=== PATIENT | male | born 1980 | race African-American/Black ===

== ENCOUNTER 2023-12-08 23:13 | Inpatient (IN) | payer OTHER, SELFPAY ==
[2023-12-08 23:45] VITALS: BP 143/76; PULSE 89; RESP 16; TEMP 36.2; O2SAT 99
[2023-12-09] MEDS: Buprenorphine/Naloxone 8/2 mg TAB.SUBL 1 TAB SUBLINGUAL ×2 (01:30→08:49)
[2023-12-09] MEDS: traZODone HCL 100 MG TABLET PO ×2 (01:30→20:30)
[2023-12-09] MEDS: cloNIDine HCL 0.2 MG TABLET PO ×2 (01:30→20:31)
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
[2023-12-09 07:40] VITALS: BP 126/55; PULSE 96; RESP 12; TEMP 36.9; O2SAT 98
[2023-12-09 08:05] LABS: Estimated Average Glucose 105 mg/dL; Hemoglobin A1c % 5.3 % (<6.0)
[2023-12-09 08:19] LABS: Alanine Aminotransferase 21 U/L (0-40); Albumin Level 3.7 g/dL (3.5-5.0); Alkaline Phosphatase 89 U/L (39-117); Anion Gap 13 (12-20); Aspartate Amino Transferase 22 U/L (5-37); Bilirubin Total 0.6 mg/dL (0.0-1.0); Blood Urea Nitrogen 18 mg/dL (9-16); Calcium 9.4 mg/dL (8.4-10.2); Carbon Dioxide 26 mmol/L (22-29); Chloride 108 mmol/L (96-108); Cholesterol 157 mg/dL (<200); Estimated Glomerular Filt Rate > 60; Glucose Fasting 115 mg/dL (60-99); HDL Cholesterol 35 mg/dL (>40); LDL Cholesterol Calculated 112 mg/dL (<100); Potassium 3.9 mmol/L (3.3-5.1); Sodium 143 mmol/L (135-145); Total Protein 6.8 g/dL (6.5-8.0); Triglycerides 54 mg/dL (<150)
[2023-12-09 08:38] LABS: Vitamin B12 1123 pg/mL (200-900)
[2023-12-09] MEDS: Sertraline HCL 100 MG TABLET PO (08:49)
[2023-12-09] MEDS: Nicotine 21 MG PATCH.TD24 TRANSDERMA ×2 (08:49→14:23)
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
[2023-12-09] MEDS: Buprenorphine/Naloxone 2/0.5mg FILM 3 FILM SUBLINGUAL (14:23)
[2023-12-09 20:10] VITALS: BP 126/63; PULSE 77; RESP 16; TEMP 36.2; O2SAT 100
[2023-12-09] MEDS: Sennosides 8.6 MG TABLET 17.2 MG PO (20:30)
[2023-12-09] MEDS: Buprenorphine/Naloxone 8/2 mg FILM 1 FILM SUBLINGUAL (20:30)
[2023-12-10] MEDS: Milk of Magnesia 30 ML ORAL.SUSP PO (04:26)
[2023-12-10 06:00] VITALS: BP 122/71; PULSE 74; RESP 16; TEMP 36.2; O2SAT 98
[2023-12-10] MEDS: Sertraline HCL 100 MG TABLET PO (09:04)
[2023-12-10] MEDS: Sennosides 8.6 MG TABLET 17.2 MG PO ×2 (09:04→11:36)
[2023-12-10] MEDS: Nicotine 21 MG PATCH.TD24 TRANSDERMA (09:05)
[2023-12-10] MEDS: Buprenorphine/Naloxone 2/0.5mg FILM 3 FILM SUBLINGUAL (09:30)
[2023-12-10] MEDS: hydrOXYzine HCL 50 MG TABLET 100 MG PO ×2 (11:36→21:07)
[2023-12-10] MEDS: Buprenorphine/Naloxone 2/0.5mg FILM 1 FILM SUBLINGUAL (11:37)
[2023-12-10] MEDS: cloNIDine HCL 0.1 MG TABLET PO ×2 (11:37→15:53)
--- NOTE | 2023-12-10 13:58 | HO.PSYCHPN ---
Subjective Subjective Date of Service: 12/10/23 Reason For Visit: Unspecific Anxiety Disorder Interim History: pt awake and alert. suboxone returned to 8 mg TID. pt asks for something for anxiety and to restart hydroxyzine 100 BID, which is done. agrees to add clonidine during the day for new clonidine regimen of 0.1/0.1/0.2. also c/o nightmares, agrees to add prazosin 1 mg back into his regimen. requesting more aggressive senna regimen as well. states he did sleep longer last night, at 4.5 hours, than he usually does. awaiting bed at [facility] respite. per staff, angry re suboxone reduction yesterday. slept 5-6 hours. up at 0430. Mental Status Exam Mental Status Exam Narrative: visible in milieu participating in art group, wearing hospital PJs. no PMA/PMR. cooperative. speech nml amount, nml loudness, rate and amount. thoughts linear and logical. affect full range, normo-intense, non-labile. mood anxious. no SI/SIBI/HI/AVH expressed. Diagnostics Vital Signs (24Hr): Vital Signs - 24 hr 12/09/23 20:10 12/10/23 06:00 Temperature 97.2 F 97.2 F Pulse Rate 77 74 Respiratory Rate 16 16 Blood Pressure 126/63 122/71 Pulse Oximetry 100 98 Oxygen Delivery Method Room Air Room Air Labs 12/09/23 07:46 Labs: Laboratory Results - last 48 hr 12/09/23 12/09/23 07:45 07:46 Sodium 143 Potassium 3.9 Chloride 108 Carbon Dioxide 26 Anion Gap 13 BUN 18 H Creatinine 0.97 Estim Creat Clear Calc TNP Estimated GFR > 60 Fasting Glucose 115 H Estimat Average Glucose 105 Hemoglobin A1c % 5.3 Calcium 9.4 Total Bilirubin 0.6 AST 22 ALT 21 Alkaline Phosphatase 89 Total Protein 6.8 Albumin 3.7 Triglycerides 54 Cholesterol 157 LDL Cholesterol, Calc 112 H HDL Cholesterol 35 L Vitamin B12 1123 H TSH 0.60 Medications Medications Current Medications Acetaminophen (Acetaminophen 325 Mg Tablet) 650 mg PO Q6H PRN PRN Reason: Headache/Pain Mild Scale (1-3) Al Hydroxide/Mg Hydroxide (Magnesium Hydrox/Alum Hydrox 30 Ml Oral.Susp) 30 ml PO Q6H PRN PRN Reason: Heartburn/Nausea Albuterol Sulfate (Albuterol Sulfate 90 Mcg 8 Gm Inhaler) 2 puff INHALE Q4H PRN PRN Reason: wheezing Buprenorphine/Naloxone (Buprenorphine/Naloxone 8/2 Mg Film) 1 film SUBLINGUAL TID [facility] Clonidine HCl (Clonidine Hcl 0.2 Mg Tablet) 0.2 mg PO BEDTIME [facility]; Protocol Last Admin: 12/09/23 20:31 Dose: 0.2 mg Clonidine HCl (Clonidine Hcl 0.1 Mg Tablet) 0.1 mg PO BID@0900,1500 [facility]; Protocol Last Admin: 12/10/23 11:37 Dose: 0.1 mg Docusate Sodium (Docusate Sodium 100 Mg Capsule) 100 mg PO BID [facility] Hydroxyzine HCl (Hydroxyzine Hcl 25 Mg Tablet) 25 mg PO Q6H PRN PRN Reason: Anxiety Hydroxyzine HCl (Hydroxyzine Hcl 50 Mg Tablet) 100 mg PO BID [facility] Magnesium Hydroxide (Milk Of Magnesia 30 Ml Oral.Susp) 30 ml PO DAILY PRN PRN Reason: Constipation Last Admin: 12/10/23 04:26 Dose: 30 ml Nicotine (Nicotine 21 Mg Patch.Td24) 21 mg TRANSDERMA DAILY [facility] Last Admin: 12/10/23 09:05 Dose: 21 mg Prazosin HCl (Prazosin Hcl 1 Mg Capsule) 1 mg PO BEDTIME [facility]; Protocol Senna (Sennosides 8.6 Mg Tablet) 34.4 mg PO BID [facility] Sertraline HCl (Sertraline Hcl 100 Mg Tablet) 100 mg PO DAILY [facility] Last Admin: 12/10/23 09:04 Dose: 100 mg Trazodone HCl (Trazodone Hcl 50 Mg Tablet) 50 mg PO BEDTIME MRX1 PRN PRN Reason: Insomnia Trazodone HCl (Trazodone Hcl 100 Mg Tablet) 100 mg PO BEDTIME [facility] Last Admin: 12/09/23 20:30 Dose: 100 mg Allergies Allergies Allergy/AdvReac Type Severity Reaction Status Date / Time No Known Allergies Allergy Verified 12/08/23 23:34 Assessment & Plan Assessment & Plan (1) Cocaine use disorder: Status: Acute Code(s): F14.10 - Cocaine abuse, uncomplicated (2) Opioid use disorder: Status: Acute Code(s): F11.90 - Opioid use, unspecified, uncomplicated (3) Unspecified mood [affective] disorder: Status: Acute Code(s): F39 - Unspecified mood [affective] disorder Plan 12/09: verify and restart as indicated pt's previous outpt regimen. decrease suboxone dosing from 24 mg daily to 20 mg daily for the next 24 hours due to sedation, then reassess. 12/10: more alert today, return suboxone dosing to 8 TID. also restart hydroxyzine 100 BID and prazosin 1 QHS. double senna regimen. change clonidine 0.2 QHS to 0.1/0.1/0.2 to target anxiety. planning to dispo to [facility] respite bed. Reason for continued inpatient stay Substantial Risk for: harm to self, inability to function and rapid decompensation Time Spent With Patient Time: Total time managing care of this patient today __35__ minutes.
[2023-12-10] MEDS: Buprenorphine/Naloxone 8/2 mg FILM 1 FILM SUBLINGUAL ×2 (15:53→21:06)
[2023-12-10 18:00] VITALS: BP 131/71; PULSE 80; RESP 18; TEMP 36.6; O2SAT 100
[2023-12-10] MEDS: Sennosides 8.6 MG TABLET 34.4 MG PO (21:06)
[2023-12-10] MEDS: Prazosin HCL 1 MG CAPSULE PO (21:07)
[2023-12-10] MEDS: cloNIDine HCL 0.2 MG TABLET PO (21:07)
[2023-12-10] MEDS: traZODone HCL 100 MG TABLET PO (21:07)
[2023-12-10] MEDS: Docusate Sodium 100 MG CAPSULE PO (21:07)
[2023-12-11 07:15] VITALS: BP 115/66; PULSE 86; RESP 18; TEMP 36.5; O2SAT 97
[2023-12-11] MEDS: Docusate Sodium 100 MG CAPSULE PO ×2 (09:05→21:18)
[2023-12-11] MEDS: hydrOXYzine HCL 50 MG TABLET 100 MG PO (09:05)
[2023-12-11] MEDS: Nicotine 21 MG PATCH.TD24 TRANSDERMA (09:05)
[2023-12-11] MEDS: Sertraline HCL 100 MG TABLET PO (09:06)
[2023-12-11] MEDS: cloNIDine HCL 0.1 MG TABLET PO ×2 (09:06→15:07)
[2023-12-11] MEDS: Sennosides 8.6 MG TABLET 34.4 MG PO ×2 (09:06→21:19)
[2023-12-11] MEDS: Buprenorphine/Naloxone 8/2 mg FILM 1 FILM SUBLINGUAL ×3 (09:08→20:59)
--- NOTE | 2023-12-11 14:23 | HO.PSYCHPN ---
Subjective Subjective Date of Service: 12/11/23 Reason For Visit: Unspecific Anxiety Disorder Interim History: pt reports having slept 12-4, then being up until breakfast, then going back to sleep again until being awakened by MD at 1130. somnolent, agrees to decrease hydroxyzine from 100 BID to 50 BID. also agrees to increase prazosin at HS to 2 mg to help with sleep/nightmares. awaiting bed at [facility] respite. per staff, irritable, reactive yesterday. taking meds. slept all NOC. Mental Status Exam Mental Status Exam Narrative: resting in bed, wearing street clothes. no PMA/PMR. cooperative. speech nml amount, nml loudness, rate and amount. thoughts linear and logical. affect full range, normo-intense, non-labile. mood not assessed no SI/SIBI/HI/AVH expressed. Diagnostics Vital Signs (24Hr): Vital Signs - 24 hr 12/10/23 18:00 12/11/23 07:15 Temperature 97.9 F 97.7 F Pulse Rate 80 86 Respiratory Rate 18 18 Blood Pressure 131/71 115/66 Pulse Oximetry 100 97 Oxygen Delivery Method Room Air Room Air Labs 12/09/23 07:46 Medications Medications Current Medications Acetaminophen (Acetaminophen 325 Mg Tablet) 650 mg PO Q6H PRN PRN Reason: Headache/Pain Mild Scale (1-3) Al Hydroxide/Mg Hydroxide (Magnesium Hydrox/Alum Hydrox 30 Ml Oral.Susp) 30 ml PO Q6H PRN PRN Reason: Heartburn/Nausea Albuterol Sulfate (Albuterol Sulfate 90 Mcg 8 Gm Inhaler) 2 puff INHALE Q4H PRN PRN Reason: wheezing Buprenorphine/Naloxone (Buprenorphine/Naloxone 8/2 Mg Film) 1 film SUBLINGUAL TID [facility] Last Admin: 12/11/23 09:08 Dose: 1 film Clonidine HCl (Clonidine Hcl 0.2 Mg Tablet) 0.2 mg PO BEDTIME [facility]; Protocol Last Admin: 12/10/23 21:07 Dose: 0.2 mg Clonidine HCl (Clonidine Hcl 0.1 Mg Tablet) 0.1 mg PO BID@0900,1500 [facility]; Protocol Last Admin: 12/11/23 09:06 Dose: 0.1 mg Docusate Sodium (Docusate Sodium 100 Mg Capsule) 100 mg PO BID [facility] Last Admin: 12/11/23 09:05 Dose: 100 mg Hydroxyzine HCl (Hydroxyzine Hcl 25 Mg Tablet) 25 mg PO Q6H PRN PRN Reason: Anxiety Hydroxyzine HCl (Hydroxyzine Hcl 50 Mg Tablet) 50 mg PO BID [facility] Magnesium Hydroxide (Milk Of Magnesia 30 Ml Oral.Susp) 30 ml PO DAILY PRN PRN Reason: Constipation Last Admin: 12/10/23 04:26 Dose: 30 ml Nicotine (Nicotine 21 Mg Patch.Td24) 21 mg TRANSDERMA DAILY [facility] Last Admin: 12/11/23 09:05 Dose: 21 mg Prazosin HCl (Prazosin Hcl 1 Mg Capsule) 2 mg PO BEDTIME [facility]; Protocol Senna (Sennosides 8.6 Mg Tablet) 34.4 mg PO BID [facility] Last Admin: 12/11/23 09:06 Dose: 34.4 mg Sertraline HCl (Sertraline Hcl 100 Mg Tablet) 100 mg PO DAILY [facility] Last Admin: 12/11/23 09:06 Dose: 100 mg Trazodone HCl (Trazodone Hcl 50 Mg Tablet) 50 mg PO BEDTIME MRX1 PRN PRN Reason: Insomnia Trazodone HCl (Trazodone Hcl 100 Mg Tablet) 100 mg PO BEDTIME [facility] Last Admin: 12/10/23 21:07 Dose: 100 mg Allergies Allergies Allergy/AdvReac Type Severity Reaction Status Date / Time No Known Allergies Allergy Verified 12/08/23 23:34 Assessment & Plan Assessment & Plan (1) Cocaine use disorder: Status: Acute Code(s): F14.10 - Cocaine abuse, uncomplicated (2) Opioid use disorder: Status: Acute Code(s): F11.90 - Opioid use, unspecified, uncomplicated (3) Unspecified mood [affective] disorder: Status: Acute Code(s): F39 - Unspecified mood [affective] disorder Plan 12/09: verify and restart as indicated pt's previous outpt regimen. decrease suboxone dosing from 24 mg daily to 20 mg daily for the next 24 hours due to sedation, then reassess. 12/10: more alert today, return suboxone dosing to 8 TID. also restart hydroxyzine 100 BID and prazosin 1 QHS. double senna regimen. change clonidine 0.2 QHS to 0.1/0.1/0.2 to target anxiety. planning to dispo to [facility] respite bed. 12/11: decrease hydroxyzine from 100 BID to 50 BID due to sedation. increase HS prazosin to 2 mg for insomnia/nightmares. otherwise continue current mgmt. awaiting bed at [facility]. Reason for continued inpatient stay Substantial Risk for: inability to function and rapid decompensation Time Spent With Patient Time: Total time managing care of this patient today _25___ minutes.
[2023-12-11 15:09] VITALS: BP 130/68; PULSE 80
[2023-12-11 21:00] VITALS: BP 131/71; PULSE 86; RESP 14; TEMP 36.6; O2SAT 97
[2023-12-11] MEDS: Prazosin HCL 1 MG CAPSULE 2 MG PO (21:18)
[2023-12-11] MEDS: traZODone HCL 100 MG TABLET PO (21:18)
[2023-12-11] MEDS: hydrOXYzine HCL 50 MG TABLET PO (21:18)
[2023-12-11] MEDS: cloNIDine HCL 0.2 MG TABLET PO (21:19)
[2023-12-12 07:30] VITALS: BP 134/71; PULSE 89; RESP 16; TEMP 36.3; O2SAT 96
[2023-12-12] MEDS: Nicotine 21 MG PATCH.TD24 TRANSDERMA (09:19)
[2023-12-12] MEDS: Sennosides 8.6 MG TABLET 34.4 MG PO ×2 (09:19→21:01)
[2023-12-12] MEDS: Buprenorphine/Naloxone 8/2 mg FILM 1 FILM SUBLINGUAL ×3 (09:19→21:02)
[2023-12-12] MEDS: Docusate Sodium 100 MG CAPSULE PO ×2 (09:20→21:01)
[2023-12-12] MEDS: cloNIDine HCL 0.1 MG TABLET PO ×2 (09:20→15:28)
[2023-12-12] MEDS: hydrOXYzine HCL 50 MG TABLET PO ×2 (09:21→21:02)
[2023-12-12] MEDS: Sertraline HCL 100 MG TABLET PO (09:21)
--- NOTE | 2023-12-12 13:05 | P.PNPSI_ITS ---
Subjective Subjective Date of Service: 12/12/23 Reason For Visit: Unspecific Anxiety Disorder Subjective Notes: Conditional Voluntary Interim History: The nursing staff reported that he had been irritable at times but easily redirectable. He was seen dosing all day long. 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 No safety concerns at this moment. Mental Status Exam Mental Status Exam Patient Appearance: Appropriate Patient Orientation: Person Level of Consciousness: Awake Patient Behavior: Guarded and Passive Mood Description: Withdrawn Affect Description: Constricted Patient Cognition Impaired: Yes Ability to Follow Directions: Good Speech Pattern: Clear Hallucinations: None Delusions: Not Present Thought Process: Distracted and Slowed Thinking Thought Content: positive for [place] and positive for Poverty of Content Judgement: Fair Diagnostics Vital Signs (24Hr): Vital Signs - 24 hr 12/11/23 15:09 12/11/23 21:00 12/12/23 07:30 Temperature 97.8 F 97.3 F Pulse Rate 80 86 89 Respiratory Rate 14 16 Blood Pressure 130/68 131/71 134/71 Pulse Oximetry 97 96 Oxygen Delivery Method Room Air Room Air Labs 12/09/23 07:46 Medications Medications Current Medications Acetaminophen (Acetaminophen 325 Mg Tablet) 650 mg PO Q6H PRN PRN Reason: Headache/Pain Mild Scale (1-3) Al Hydroxide/Mg Hydroxide (Magnesium Hydrox/Alum Hydrox 30 Ml Oral.Susp) 30 ml PO Q6H PRN PRN Reason: Heartburn/Nausea Albuterol Sulfate (Albuterol Sulfate 90 Mcg 8 Gm Inhaler) 2 puff INHALE Q4H PRN PRN Reason: wheezing Buprenorphine/Naloxone (Buprenorphine/Naloxone 8/2 Mg Film) 1 film SUBLINGUAL TID COUNT [facility]CLUDES [facility] Last Admin: 12/12/23 09:19 Dose: 1 film Clonidine HCl (Clonidine Hcl 0.2 Mg Tablet) 0.2 mg PO BEDTIME COUNT [facility]CLUDES [facility]; Protocol Last Admin: 12/11/23 21:19 Dose: 0.2 mg Clonidine HCl (Clonidine Hcl 0.1 Mg Tablet) 0.1 mg PO BID@0900,1500 [facility]; Protocol Last Admin: 12/12/23 09:20 Dose: 0.1 mg Docusate Sodium (Docusate Sodium 100 Mg Capsule) 100 mg PO BID COUNT [facility]CLUDES [facility] Last Admin: 12/12/23 09:20 Dose: 100 mg Hydroxyzine HCl (Hydroxyzine Hcl 25 Mg Tablet) 25 mg PO Q6H PRN PRN Reason: Anxiety Hydroxyzine HCl (Hydroxyzine Hcl 50 Mg Tablet) 50 mg PO BID COUNT [facility]CLUDES [facility] Last Admin: 12/12/23 09:21 Dose: 50 mg Magnesium Hydroxide (Milk Of Magnesia 30 Ml Oral.Susp) 30 ml PO DAILY PRN PRN Reason: Constipation Last Admin: 12/10/23 04:26 Dose: 30 ml Nicotine (Nicotine 21 Mg Patch.Td24) 21 mg TRANSDERMA DAILY COUNT [facility]CLUD[facility] Last Admin: 12/12/23 09:19 Dose: 21 mg Prazosin HCl (Prazosin Hcl 1 Mg Capsule) 2 mg PO BEDTIME COUNT [facility]; Protocol Last Admin: 12/11/23 21:18 Dose: 2 mg Senna (Sennosides 8.6 Mg Tablet) 34.4 mg PO BID COUNT [facility]CLUD[facility] Last Admin: 12/12/23 09:19 Dose: 34.4 mg Sertraline HCl (Sertraline Hcl 100 Mg Tablet) 100 mg PO DAILY COUNT [facility] Last Admin: 12/12/23 09:21 Dose: 100 mg Trazodone HCl (Trazodone Hcl 50 Mg Tablet) 50 mg PO BEDTIME MRX1 PRN PRN Reason: Insomnia Trazodone HCl (Trazodone Hcl 100 Mg Tablet) 100 mg PO BEDTIME COUNT [facility]CLUD[facility] Last Admin: 12/11/23 21:18 Dose: 100 mg Allergies Allergies Allergy/AdvReac Type Severity Reaction Status Date / Time No Known Allergies Allergy Verified 12/08/23 23:34 Assessment & Plan Assessment & Plan (1) Cocaine use disorder: Status: Acute Code(s): F14.10 - Cocaine abuse, uncomplicated (2) Opioid use disorder: Status: Acute Code(s): F11.90 - Opioid use, unspecified, uncomplicated (3) Unspecified mood [affective] disorder: Status: Acute Code(s): F39 - Unspecified mood [affective] disorder Plan 12/09: verify and restart as indicated pt's previous outpt regimen. decrease suboxone dosing from 24 mg daily to 20 mg daily for the next 24 hours due to sedation, then reassess. 12/10: more alert today, return suboxone dosing to 8 TID. also restart hydroxyzine 100 BID and prazosin 1 QHS. double senna regimen. change clonidine 0.2 QHS to 0.1/0.1/0.2 to target anxiety. planning to dispo to [facility] respite bed. 12/11: decrease hydroxyzine from 100 BID to 50 BID due to sedation. increase HS prazosin to 2 mg for insomnia/nightmares. otherwise continue current mgmt. awaiting bed at [facility]. 12/12 continue same treatment Reason for continued inpatient stay Substantial Risk for: inability to function, rapid decompensation and med/psych decompensation Time Spent With Patient Time: Total time managing care of this patient today __20__ minutes.
[2023-12-12] MEDS: Prazosin HCL 1 MG CAPSULE 2 MG PO (21:01)
[2023-12-12] MEDS: cloNIDine HCL 0.2 MG TABLET PO (21:01)
[2023-12-12] MEDS: traZODone HCL 100 MG TABLET PO (21:01)
[2023-12-12 21:05] VITALS: BP 127/60; PULSE 81; RESP 18; TEMP 36.4; O2SAT 99
[2023-12-13 08:00] VITALS: BP 145/73; PULSE 102
[2023-12-13] MEDS: Sennosides 8.6 MG TABLET 34.4 MG PO ×2 (08:30→21:39)
[2023-12-13] MEDS: Docusate Sodium 100 MG CAPSULE PO ×2 (08:31→21:38)
[2023-12-13] MEDS: Sertraline HCL 100 MG TABLET PO (08:31)
[2023-12-13] MEDS: Buprenorphine/Naloxone 8/2 mg FILM 1 FILM SUBLINGUAL ×3 (08:32→21:43)
[2023-12-13] MEDS: cloNIDine HCL 0.1 MG TABLET PO ×2 (08:32→14:11)
[2023-12-13] MEDS: hydrOXYzine HCL 50 MG TABLET PO ×2 (08:32→21:39)
[2023-12-13] MEDS: Nicotine 21 MG PATCH.TD24 TRANSDERMA (08:34)
--- NOTE | 2023-12-13 12:32 | P.PNPSI_ITS ---
Subjective Subjective Date of Service: 12/13/23 Reason For Visit: Unspecific Anxiety Disorder Subjective Notes: Conditional Voluntary Interim History: The nursing staff reported the patient had been accusatory towards staff angry with poor tolerance to frustration. He has not attend to any groups. On interview the patient was despondent unable to participate in the interview. No safety concerns at this moment Mental Status Exam Mental Status Exam Patient Appearance: Appropriate Patient Orientation: Person and Situation Level of Consciousness: Awake Patient Behavior: Guarded Mood Description: Calm Affect Description: Constricted Ability to Follow Directions: Good Speech Pattern: Clear Hallucinations: None Delusions: Ideas of Reference Thought Process: Distracted and Slowed Thinking Thought Content: positive for [place] and positive for Poverty of Content Judgement: Fair Diagnostics Vital Signs (24Hr): Vital Signs - 24 hr 12/12/23 21:05 12/13/23 08:00 Temperature 97.5 F Pulse Rate 81 102 H Respiratory Rate 18 Blood Pressure 127/60 145/73 H Pulse Oximetry 99 Oxygen Delivery Method Room Air Labs 12/09/23 07:46 Medications Medications Current Medications Acetaminophen (Acetaminophen 325 Mg Tablet) 650 mg PO Q6H PRN PRN Reason: Headache/Pain Mild Scale (1-3) Al Hydroxide/Mg Hydroxide (Magnesium Hydrox/Alum Hydrox 30 Ml Oral.Susp) 30 ml PO Q6H PRN PRN Reason: Heartburn/Nausea Albuterol Sulfate (Albuterol Sulfate 90 Mcg 8 Gm Inhaler) 2 puff INHALE Q4H PRN PRN Reason: wheezing Buprenorphine/Naloxone (Buprenorphine/Naloxone 8/2 Mg Film) 1 film SUBLINGUAL TID [facility] Last Admin: 12/13/23 08:32 Dose: 1 film Clonidine HCl (Clonidine Hcl 0.2 Mg Tablet) 0.2 mg PO BEDTIME [facility]; Protocol Last Admin: 12/12/23 21:01 Dose: 0.2 mg Clonidine HCl (Clonidine Hcl 0.1 Mg Tablet) 0.1 mg PO BID@0900,1500 [facility]; Protocol Last Admin: 12/13/23 08:32 Dose: 0.1 mg Docusate Sodium (Docusate Sodium 100 Mg Capsule) 100 mg PO BID [facility] Last Admin: 12/13/23 08:31 Dose: 100 mg Hydroxyzine HCl (Hydroxyzine Hcl 25 Mg Tablet) 25 mg PO Q6H PRN PRN Reason: Anxiety Hydroxyzine HCl (Hydroxyzine Hcl 50 Mg Tablet) 50 mg PO BID [facility] Last Admin: 12/13/23 08:32 Dose: 50 mg Magnesium Hydroxide (Milk Of Magnesia 30 Ml Oral.Susp) 30 ml PO DAILY PRN PRN Reason: Constipation Last Admin: 12/10/23 04:26 Dose: 30 ml Nicotine (Nicotine 21 Mg Patch.Td24) 21 mg TRANSDERMA DAILY [facility] Last Admin: 12/13/23 08:34 Dose: 21 mg Prazosin HCl (Prazosin Hcl 1 Mg Capsule) 2 mg PO BEDTIME [facility]; Protocol Last Admin: 12/12/23 21:01 Dose: 2 mg Senna (Sennosides 8.6 Mg Tablet) 34.4 mg PO BID [facility] Last Admin: 12/13/23 08:30 Dose: 34.4 mg Sertraline HCl (Sertraline Hcl 100 Mg Tablet) 100 mg PO DAILY [facility] Last Admin: 12/13/23 08:31 Dose: 100 mg Trazodone HCl (Trazodone Hcl 50 Mg Tablet) 50 mg PO BEDTIME MRX1 PRN PRN Reason: Insomnia Trazodone HCl (Trazodone Hcl 100 Mg Tablet) 100 mg PO BEDTIME [facility] Last Admin: 12/12/23 21:01 Dose: 100 mg Allergies Allergies Allergy/AdvReac Type Severity Reaction Status Date / Time No Known Allergies Allergy Verified 12/08/23 23:34 Assessment & Plan Assessment & Plan (1) Cocaine use disorder: Status: Acute Code(s): F14.10 - Cocaine abuse, uncomplicated (2) Opioid use disorder: Status: Acute Code(s): F11.90 - Opioid use, unspecified, uncomplicated (3) Unspecified mood [affective] disorder: Status: Acute Code(s): F39 - Unspecified mood [affective] disorder Plan 12/09: verify and restart as indicated pt's previous outpt regimen. decrease suboxone dosing from 24 mg daily to 20 mg daily for the next 24 hours due to sedation, then reassess. 12/10: more alert today, return suboxone dosing to 8 TID. also restart hydroxyzine 100 BID and prazosin 1 QHS. double senna regimen. change clonidine 0.2 QHS to 0.1/0.1/0.2 to target anxiety. planning to [facility]po to [facility] resp[facility] bed. 12/11: decrease hydroxyzine from 100 BID to 50 BID due to sedation. increase HS prazosin to 2 mg for insomnia/nightmares. otherwise continue current mgmt. awaiting bed at [facility]. 12/12 continue same treatment 12/13 continue same treatment Reason for continued inpatient stay Substantial Risk for: inability to function, rapid decompensation and med/psych decompensation Time Spent With Patient Time: Total time managing care of this patient today __20__ minutes.
[2023-12-13 14:08] VITALS: BP 124/64; PULSE 87
[2023-12-13] MEDS: Albuterol Sulfate 90 MCG 8 GM INHALER 2 PUFF INHALE (14:12)
[2023-12-13] MEDS: predniSONE 10 MG TABLET PO (15:33)
[2023-12-13 20:25] VITALS: BP 139/66; PULSE 91; RESP 18; TEMP 36.1; O2SAT 99
[2023-12-13] MEDS: cloNIDine HCL 0.2 MG TABLET PO (21:38)
[2023-12-13] MEDS: Prazosin HCL 1 MG CAPSULE 2 MG PO (21:38)
[2023-12-13] MEDS: traZODone HCL 100 MG TABLET PO (21:39)
[2023-12-14 08:10] VITALS: BP 124/69; PULSE 79; RESP 16; TEMP 36.7; O2SAT 99
[2023-12-14] MEDS: Nicotine 21 MG PATCH.TD24 TRANSDERMA (08:14)
[2023-12-14] MEDS: Sennosides 8.6 MG TABLET 34.4 MG PO ×2 (08:15→21:35)
[2023-12-14] MEDS: hydrOXYzine HCL 50 MG TABLET PO ×2 (08:15→21:35)
[2023-12-14] MEDS: Buprenorphine/Naloxone 8/2 mg FILM 1 FILM SUBLINGUAL ×3 (08:15→21:36)
[2023-12-14] MEDS: cloNIDine HCL 0.1 MG TABLET PO ×2 (08:16→14:51)
[2023-12-14] MEDS: Sertraline HCL 100 MG TABLET PO (08:16)
[2023-12-14] MEDS: Docusate Sodium 100 MG CAPSULE PO ×2 (08:16→21:35)
--- NOTE | 2023-12-14 11:56 | HO.PSYCHPN ---
Subjective Subjective Date of Service: 12/14/23 Reason For Visit: Unspecific Anxiety Disorder Subjective Notes: Conditional Voluntary Interim History: Reviewed with . keeping to self. guarded. Pt reports feeling anxious today; pt stated, I have no where to live. I don't know what to expect and I don't have family around here . Pt reports auditory hallucinations which tell him to harm himself. Pt reports suicidal ideation; denies HI/VH. Attending Groups: No Review of Systems Constitutional: Reports as per HPI Eyes: Reports as per HPI Reports as per HPI Cardiovascular: Reports as per HPI Respiratory: Reports as per HPI Gastrointestinal: Reports as per HPI Genitourinary: Reports as per HPI Musculoskeletal: Reports as per HPI Skin/Breast: Reports as per HPI Reports as per HPI Psychiatric: Reports as per HPI Endocrine: Reports as per HPI Hematologic/Lymphatic: Reports as per HPI Allergic/Immunologic: Reports as per HPI Mental Status Exam Mental Status Exam Narrative: Pt is guarded and calm; dressed in casual attire; mood is described as anxious ; eye contact appropriate; Speech is normal rate, volume and prosody and not pressured; thought process is organized; Thought content is on tx; denies HI/VH. Pt reports suicidal ideation and auditory hallucinations that tell him to harm himself. Diagnostics Vital Signs (24Hr): Vital Signs - 24 hr 12/13/23 14:08 12/13/23 20:25 12/14/23 08:10 Temperature 97.0 F 98.1 F Pulse Rate 87 91 79 Respiratory Rate 18 16 Blood Pressure 124/64 139/66 124/69 Pulse Oximetry 99 99 Oxygen Delivery Method Room Air Room Air Labs 12/09/23 07:46 Medications Medications Current Medications Acetaminophen (Acetaminophen 325 Mg Tablet) 650 mg PO Q6H PRN PRN Reason: Headache/Pain Mild Scale (1-3) Al Hydroxide/Mg Hydroxide (Magnesium Hydrox/Alum Hydrox 30 Ml Oral.Susp) 30 ml PO Q6H PRN PRN Reason: Heartburn/Nausea Albuterol Sulfate (Albuterol Sulfate 90 Mcg 8 Gm Inhaler) 2 puff INHALE Q4H PRN PRN Reason: wheezing Last Admin: 12/13/23 14:12 Dose: 2 puff Buprenorphine/Naloxone (Buprenorphine/Naloxone 8/2 Mg Film) 1 film SUBLINGUAL TID [facility] Last Admin: 12/14/23 08:15 Dose: 1 film Clonidine HCl (Clonidine Hcl 0.2 Mg Tablet) 0.2 mg PO BEDTIME [facility]; Protocol Last Admin: 12/13/23 21:38 Dose: 0.2 mg Clonidine HCl (Clonidine Hcl 0.1 Mg Tablet) 0.1 mg PO BID@0900,1500 [facility]; Protocol Last Admin: 12/14/23 08:16 Dose: 0.1 mg Docusate Sodium (Docusate Sodium 100 Mg Capsule) 100 mg PO BID [facility] Last Admin: 12/14/23 08:16 Dose: 100 mg Hydroxyzine HCl (Hydroxyzine Hcl 25 Mg Tablet) 25 mg PO Q6H PRN PRN Reason: Anxiety Hydroxyzine HCl (Hydroxyzine Hcl 50 Mg Tablet) 50 mg PO BID [facility] Last Admin: 12/14/23 08:15 Dose: 50 mg Magnesium Hydroxide (Milk Of Magnesia 30 Ml Oral.Susp) 30 ml PO DAILY PRN PRN Reason: Constipation Last Admin: 12/10/23 04:26 Dose: 30 ml Nicotine (Nicotine 21 Mg Patch.Td24) 21 mg TRANSDERMA DAILY [facility] Last Admin: 12/14/23 08:14 Dose: 21 mg Prazosin HCl (Prazosin Hcl 1 Mg Capsule) 2 mg PO BEDTIME [facility]; Protocol Last Admin: 12/13/23 21:38 Dose: 2 mg Senna (Sennosides 8.6 Mg Tablet) 34.4 mg PO BID [facility] Last Admin: 12/14/23 08:15 Dose: 34.4 mg Sertraline HCl (Sertraline Hcl 100 Mg Tablet) 100 mg PO DAILY [facility] Last Admin: 12/14/23 08:16 Dose: 100 mg Trazodone HCl (Trazodone Hcl 50 Mg Tablet) 50 mg PO BEDTIME MRX1 PRN PRN Reason: Insomnia Trazodone HCl (Trazodone Hcl 100 Mg Tablet) 100 mg PO BEDTIME [facility] Last Admin: 12/13/23 21:39 Dose: 100 mg Allergies Allergies Allergy/AdvReac Type Severity Reaction Status Date / Time No Known Allergies Allergy Verified 12/08/23 23:34 Assessment & Plan Assessment & Plan (1) Cocaine use disorder: Status: Acute Code(s): F14.10 - Cocaine abuse, uncomplicated (2) Opioid use disorder: Status: Acute Code(s): F11.90 - Opioid use, unspecified, uncomplicated (3) Unspecified mood [affective] disorder: Status: Acute Code(s): F39 - Unspecified mood [affective] disorder Plan 12/09: verify and restart as indicated pt's previous outpt regimen. decrease suboxone dosing from 24 mg daily to 20 mg daily for the next 24 hours due to sedation, then reassess. 12/10: more alert today, return suboxone dosing to 8 TID. also restart hydroxyzine 100 BID and prazosin 1 QHS. double senna regimen. change clonidine 0.2 QHS to 0.1/0.1/0.2 to target anxiety. planning to dispo to [facility] respite bed. 12/11: decrease hydroxyzine from 100 BID to 50 BID due to sedation. increase HS prazosin to 2 mg for insomnia/nightmares. otherwise continue current mgmt. awaiting bed at [facility]. 12/12 continue same treatment 12/13 continue same treatment 12/14: keeping to self. guarded. Pt reports feeling anxious today; pt stated, I have no where to live. I don't know what to expect and I don't have family around here . Pt reports auditory hallucinations which tell him to harm himself. Pt reports suicidal ideation; denies HI/VH. Continue current tx plan. Patient educated on: diagnosis and medication risk/benefits Informed Consent: understands Reason for continued inpatient stay Substantial Risk for: harm to self and med/psych decompensation Time Spent With Patient Time: Total time managing care of this patient today _20___ minutes.
[2023-12-14 14:52] VITALS: BP 134/63; PULSE 86; RESP 18
[2023-12-14 19:50] VITALS: BP 131/66; PULSE 87; RESP 18; TEMP 36.2; O2SAT 99
[2023-12-14] MEDS: Prazosin HCL 1 MG CAPSULE 2 MG PO (21:35)
[2023-12-14] MEDS: cloNIDine HCL 0.2 MG TABLET PO (21:35)
[2023-12-14] MEDS: traZODone HCL 100 MG TABLET PO (21:43)
--- NOTE | 2023-12-15 00:42 | PC.NURSE ---
Joe was noted to be in the side group room watching TV throughout the evening. He required frequent redirection for bringing food and fluids into the small group room where he was watching TV. Patient became irritable with each redirection. Why can't you just leave me alone, it's not hurting anything. I don't understand what the big deal is. You need to stop bothering me about this. patient denies auditory/visual hallucinations, suicidal/homicidal ideation, depression and anxiety. monitor for safety, redirect as needed, continue Plan of Care.
[2023-12-15 07:35] VITALS: BP 133/75; PULSE 72; TEMP 36.1; O2SAT 100
[2023-12-15] MEDS: Sennosides 8.6 MG TABLET 34.4 MG PO (08:45)
[2023-12-15] MEDS: hydrOXYzine HCL 50 MG TABLET PO (08:46)
[2023-12-15] MEDS: Nicotine 21 MG PATCH.TD24 TRANSDERMA (08:46)
[2023-12-15] MEDS: cloNIDine HCL 0.1 MG TABLET PO (08:46)
[2023-12-15] MEDS: Sertraline HCL 100 MG TABLET PO (08:46)
[2023-12-15] MEDS: Docusate Sodium 100 MG CAPSULE PO (08:46)
[2023-12-15] MEDS: Buprenorphine/Naloxone 8/2 mg FILM 1 FILM SUBLINGUAL (08:47)
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
== END 2023-12-15 11:30 | DRG 753 ==
PROVIDERS: Social Worker; Admitting Provider Psychiatry & Neurology Psychiatry; Visit Provider Psychiatry & Neurology Psychiatry
DX: F39 Unspecified mood [affective] disorder (principal); R45.851 Suicidal ideations; Z91.148 Patient's other noncompliance with medication regimen for other reason; F43.10 Post-traumatic stress disorder, unspecified; F11.20 Opioid dependence, uncomplicated; F14.10 Cocaine abuse, uncomplicated; J45.909 Unspecified asthma, uncomplicated; F17.210 Nicotine dependence, cigarettes, uncomplicated; Z59.02 Unsheltered homelessness; Z71.6 Tobacco abuse counseling; Z79.899 Other long term (current) drug therapy
CPT/HCPCS: 36415; 80053; 80061; 82607; 83036; 84443

== ENCOUNTER → 2023-12-08 23:13 | Outpatient (BNV) | payer OTHER, SELFPAY | PROVIDERS: Admitting Provider Psychiatry & Neurology Psychiatry; Visit Provider Psychiatry & Neurology Psychiatry | DX: F39 Unspecified mood [affective] disorder (principal); F14.10 Cocaine abuse, uncomplicated; F11.90 Opioid use, unspecified, uncomplicated | CPT/HCPCS: 90792; 99231; 99232; 99239 ==

== ENCOUNTER → 2023-12-08 23:13 | Outpatient (BNV) | payer OTHER, SELFPAY | PROVIDERS: Admitting Provider Psychiatry & Neurology Psychiatry; Visit Provider Internal Medicine | DX: J45.909 Unspecified asthma, uncomplicated (principal); K59.03 Drug induced constipation; R45.851 Suicidal ideations | CPT/HCPCS: 99222 ==

== ENCOUNTER 2024-04-03 10:45 | Emergency (ER) | payer OTHER, SELFPAY ==
--- NOTE | ~2024-04-03 | XR_ITS ---
EXAMINATION: XR CHEST CLINICAL INFORMATION: Cough COMPARISON: None available. TECHNIQUE: Frontal view of the chest was obtained. FINDINGS: No significant abnormality is noted involving the heart, lungs, mediastinum, bony thorax or soft tissues. Degenerative changes of the spine. XR/XR chest 1V IMPRESSION: No evidence for acute disease in the chest.
--- NOTE | 2024-04-03 10:52 | ED_ITS ---
HPI - Asthma General Chief Complaint: Upper Respiratory Symptoms Stated Complaint: (AGE UNK) SOB, H/O ASTHMA,DUONEB GIVEN PER EMS Time Seen by Provider: 04/03/24 10:46 Source: patient and old records reviewed Mode of arrival: EMS Limitations: no limitations History of Present Illness HPI Narrative: 43 yo male with PMH of PTSD, mood disorder, asthma, polysubstance abuse here with c/o sniffing cocaine and heroin noted wheezing last night no fevers he broke his nebulizer machine and couldn't treat himself. He feels better with EMS duoneb. He is very animated on arrival asking for food and not taking his medications. Also has urinary burning and drip from penis with unprotected sex. MD complaint: asthma attack and wheezing Onset (ago): day(s) (last night) Severity: moderate Context: smoke exposure (drug sniffing) Associated symptoms: dry cough Asthma History: adult onset Treatments Prior to Arrival: inhaled bronchodilator Related Data Home Medications ?Medication ?Instructions ?Recorded ?Confirmed albuterol sulfate 90 mcg/actuation 2 puff inhalation Q4H PRN wheezing 12/09/23 12/09/23 aerosol inhaler (Ventolin HFA) Previous Rx's ?Medication ?Instructions ?Recorded buprenorphine 8 mg-naloxone 2 mg 1 film buccal TID 7 days #21 ea 12/15/23 sublingual film (Suboxone) clonidine HCl 0.1 mg tablet 0.1 mg PO BID@0900,1500 30 days 12/15/23 #60 tabs clonidine HCl 0.2 mg tablet 0.2 mg PO BEDTIME 30 days #30 tabs 12/15/23 docusate sodium 100 mg capsule 100 mg PO BID 30 days #60 caps 12/15/23 hydroxyzine HCl 50 mg tablet 50 mg PO BID 30 days #60 tabs 12/15/23 nicotine (polacrilex) 4 mg buccal 4 mg PO Q2H PRN Nicotine Cravings 12/15/23 lozenge 30 days #72 ea nicotine 21 mg/24 hr daily 1 patch topical DAILY 30 days #28 12/15/23 transdermal patch ea prazosin 2 mg capsule 2 mg PO BEDTIME 30 days #30 caps 12/15/23 sertraline 100 mg tablet 100 mg PO DAILY 30 days #30 tabs 12/15/23 trazodone 100 mg tablet 100 mg PO BEDTIME 30 days #30 tabs 12/15/23 albuterol sulfate 2.5 mg/3 mL 2.5 mg (3 mL) inhalation Q4-6H PRN 04/03/24 (0.083 %) solution for nebulization bronchospasm #75 mL doxycycline hyclate 100 mg capsule 100 mg PO BID 7 days #14 caps 04/03/24 prednisone 20 mg tablet 40 mg (2 x 20 mg) PO DAILY 5 days 04/03/24 #10 tabs Allergies Allergy/AdvReac Type Severity Reaction Status Date / Time shellfish derived Allergy Unknown Verified 04/03/24 11:01 Review of Systems Review of Systems: Constitutional : No Fever, No Chills ENT/Mouth : No Hoarseness, No sore throat, No Rhinorrhea Eyes: No Redness, No Discharge, No Vision Changes Cardiovascular : No Chest Pain, positive SOB, positive Dyspnea on Exertion, No Edema Respiratory : positive Cough, No Sputum, positive Wheezing, Gastrointestinal : No Nausea, No Vomiting, No Diarrhea, No abdominal Pain Genitourinary : No Dysuria, No Hematuria Musculoskeletal : No joint pain, No Myalgias Skin : No rash Neuro : No Weakness, No Numbness, No Headache Psych : pos anxiety, depression Heme/Lymph: No Bruising, No Bleeding Endocrine : No Polyuria, No Polydipsia All other systems reviewed and are negative [facility] Past Medical History Attestation statement: The following information was validated with the patient. Source: old records reviewed Medical History Suicidal ideation Constipation Asthma Social History Social History Household Members: Other Housing: Homeless Do you presently have visiting nurse or other home services: No Patient Tobacco Use Status: Current everyday Tobacco user Smoked in Last 30 Days: Yes e-Cigarette/Vaping Use: Never Used Second Hand Smoke Exposure: No Use of substances other than those prescribed or required for medical reasons: Yes Substance Use Type: Heroin Advance Directives: No Advance Directives Information Provided: Yes service: No Sexual orientation: Straight/Heterosexual Physical Exam Vital Signs: Vital Signs: Last Vital Signs Temp 98.3 F 04/03/24 10:53 Pulse 96 04/03/24 10:58 Resp 18 04/03/24 11:27 BP 121/74 04/03/24 10:53 Pulse Ox 95 04/03/24 11:27 O2 Del Method Room Air 04/03/24 11:27 BMI result Body Mass Index 36.3 Appearance: Alert. Oriented X3. No acute distress. when asked about SI he denies and states he just wants to get back on his medications he then asks for food on arrival is calling and asking for a ride home. Eyes: Pupils equal, round and reactive to light. ENT: Pharynx normal. Neck: Normal inspection. Neck supple. CVS: Normal heart rate and rhythm. Pulses normal. Respiratory: No respiratory distress. Breath sounds has exp wheezes throughout Abdomen: Soft and nontender. Skin: Skin warm and dry. Normal skin color. Normal skin turgor. Extremities: No lower extremity edema. No calf ttp Neuro: Oriented X 3. No motor deficit. No sensory deficit. Course Course Course Narrative: now states he doesn't have a ride home and is fighting with staff that now he wants an IV for fluids despite eating and drinking here, he is throwing things in the room calling security a faggot because we will not lyft him home. at this point he refused all services on arrival refused a line with EMS did not want to be changed over and now that we cannot give him a Lyft ride home he is verbally aggressive and making threats to the staff - he can be discharged home now that his asthma has been treated. Medications Administered Generic Name Dose Route Start Last Admin Trade Name Freq PRN Reason Stop Dose Admin Doxycycline Monohydrate 100 mg 04/03/24 11:15 04/03/24 11:47 Doxycycline Monohydrate 100 Mg Capsule PO 04/09/24 21:01 100 mg BID RACHEL Administration Discontinued Medications Generic Name Dose Route Start Last Admin Trade Name Freq PRN Reason Stop Dose Admin Albuterol Sulfate 5 mg/ 0 mg 04/03/24 10:53 04/03/24 10:56 Albuterol/Ipratropium 3 ml INHALE 04/03/24 10:54 1 each ONCE ONE Administration Ceftriaxone Sodium 500 mg/ 0 mg 04/03/24 11:02 04/03/24 11:43 Lidocaine HCl 1 ml IM 04/03/24 11:03 1 kit ONCE ONE Administration Ondansetron HCl 4 mg 04/03/24 11:03 04/03/24 11:46 Ondansetron Odt 4 Mg Tab.Darren SANCHEZINGU 04/03/24 11:04 4 mg ONCE ONE Administration Prednisone 60 mg 04/03/24 11:01 04/03/24 11:45 Prednisone 20 Mg Tablet PO 04/03/24 11:02 60 mg ONCE ONE Administration Medical Decision Making Medical Decision Making [facility] Narrative: 43 yo male with PMH of PTSD, mood disorder, asthma, polysubstance abuse here with c/o asthma and wheezing likely due to sniffing drugs last night and did not have his nebulizer equipment. We have offered him crisis and SUDE evaluation currently he declines he has no SI/HI. He just wants to gets back on his medicat ions but doesn't want to go through the process of talking to CARE team. He will be given nebs and steroids - gave him nebulizer tubing. If he changes his mind he is more than welcome to stay and talk to care team/addiction medicine. Differential Diagnosis Differential Diagnoses: The differential diagnosis associated with the presentation includes asthma, viral syndrome, drug abuse Admission/Observation Consideration of admission/observation: Escalation of care including admission/observation considered handed him new nebulizer tubing refusing to comply with any sort of intervention like changing over into hopsital attire he has very faint mininal wheezig no hypoxia no increased work of breathing he can be discharged at this time Lab Data [facility] Lab Attestation statement: I reviewed the patient's lab results. Labs: Lab Results 04/03/24 Range/Units 11:18 Influenza Type A (PCR) NEGATIVE (Negative) Influenza Type B (PCR) NEGATIVE (Negative) RSV RNA Qual (PCR) NEGATIVE (Negative) SARS-CoV-2 RNA (RT-PCR) NEGATIVE (Negative) Independent Interpretation I performed an independent interpretation of an: Plain X-Ray (normal ) Radiology Impression Discussion of test interpretation with radiology: I have reviewed the radiologist's reading. Independent Historian Clinical information obtained from an independent historian. History obtained from or confirmed by: EMS External Record Review External record reviewed: Inpatient record Prescription Management I considered prescription management with: Other Discharge Plan Discharge Clinical Impression: Polysubstance abuse Asthma exacerbation Qualifiers: Asthma severity: moderate Asthma persistence: persistent Qualified Code(s): J45.41 - Moderate persistent asthma with (acute) exacerbation Patient Disposition: Home, Self-Care Instructions: Asthma (ED), Polysubstance Abuse (ED) Additional Instructions: start prednisone tomorrow follow up with your doctor in regards to your medications for your mental health return at any time for worsening symptoms or concerns. Prescriptions: New albuterol sulfate 2.5 mg /3 mL (0.083 %) solution for nebulization 2.5 mg inhalation Q4-6H PRN (Reason: bronchospasm) Qty: 75 0RF prednisone 20 mg tablet 40 mg PO DAILY 5 Days Qty: 10 0RF doxycycline hyclate 100 mg capsule 100 mg PO BID 7 Days Qty: 14 0RF No Action albuterol sulfate [Ventolin HFA] 90 mcg/actuation HFA aerosol inhaler 2 puff inhalation Q4H PRN (Reason: wheezing) clonidine HCl 0.1 mg Tablet 0.1 mg PO BID@0900,1500 30 Days Qty: 60 0RF Protocol: Hold for SBP< HOLD for SBP < : 90 clonidine HCl 0.2 mg Tablet 0.2 mg PO BEDTIME 30 Days Qty: 30 0RF Protocol: Hold for SBP< HOLD for SBP < : 90 prazosin 2 mg capsule 2 mg PO BEDTIME 30 Days Qty: 30 0RF hydroxyzine HCl 50 mg Tablet 50 mg PO BID 30 Days Qty: 60 0RF sertraline 100 mg Tablet 100 mg PO DAILY 30 Days Qty: 30 0RF trazodone 100 mg Tablet 100 mg PO BEDTIME 30 Days Qty: 30 0RF nicotine 21 mg/24 hr patch 24 hour 1 patch topical DAILY 30 Days Qty: 28 0RF docusate sodium 100 mg capsule 100 mg PO BID 30 Days Qty: 60 0RF nicotine (polacrilex) 4 mg lozenge 4 mg PO Q2H PRN (Reason: Nicotine Cravings) 30 Days Qty: 72 0RF buprenorphine-naloxone [Suboxone] 8-2 mg film 1 film buccal TID 7 Days Qty: 21 0RF Print Language: Occitan
[2024-04-03 10:53] VITALS: BP 121/74; BP 121/78; PULSE 82; PULSE 93; RESP 19; TEMP 36.8; O2SAT 100; O2SAT 98; BMI 36.3
[2024-04-03] MEDS: Albuterol Sulfate 5 MG, Albuterol/Iprat 2.5/0.5MG 3 ML 3 ML INHALE (10:56)
[2024-04-03 10:58] VITALS: PULSE 96; RESP 26; O2SAT 100
--- NOTE | 2024-04-03 11:19 | PC.NURSE ---
Pt BIBA, reporting asthma exacerbation last night around 4 pm, and his nebulizer broke, Pt ambulated down his stairs and talked to EMS in full sentences. Expiratory wheezing noted bilaterally. Respiratory at bedside. Pt reports heroin use/cigarette smoking. Pt refusing security check. Provider just wants swab, labs canceled.
[2024-04-03 11:27] VITALS: RESP 18; O2SAT 95
[2024-04-03] MEDS: cefTRIAXone sodium 500 MG, Lidocaine HCl 1 % MPF 1 ML IM (11:43)
[2024-04-03] MEDS: predniSONE 20 MG TABLET 60 MG PO (11:45)
[2024-04-03] MEDS: Ondansetron ODT 4 MG TAB.RAPDIS TRANSLINGU (11:46)
[2024-04-03] MEDS: Doxycycline Monohydrate 100 MG CAPSULE PO (11:47)
[2024-04-03 12:00] LABS: Influenza A PCR NEGATIVE (Negative); Influenza B PCR NEGATIVE (Negative); Resp Syncy Virus RNA Qual PCR NEGATIVE (Negative); SARS COV2 PCR INHOUSE NEGATIVE (Negative)
--- NOTE | 2024-04-03 12:02 | PC.NURSE ---
Pt SANTOS, reporting asthma exacerbation last night around 4 pm, his nebulizer broke, Pt ambulated down his stairs and spoke in full sentences to EMS. Expiratory wheezing noted bilaterally. Respiratory at bedside. This RN w/Provider at bedside, pt verbalized heroin use/smoking tobacco, and wanting to see care team. Although pt refused to get changed over by security and go through process to see care team. Pt then became more agitated stating I dont understand why i cant see the care team, they told me they were coming. We reminded the patient that if he does not allow us to clear him medical care team cannot see him. made aware of behavior, PO meds given with security on standby, D/c instructions given. Pt escorted out by security and sent home.
[2024-04-03 12:30] VITALS: BP 121/71; PULSE 93; RESP 19; TEMP 36.8; O2SAT 98
== END 2024-04-03 12:40 | disposition home or self-care (01) ==
PROVIDERS: Emergency Provider Emergency Medicine
DX: J45.41 Moderate persistent asthma with (acute) exacerbation (principal); F19.10 Other psychoactive substance abuse, uncomplicated; R36.9 Urethral discharge, unspecified
CPT/HCPCS: 0241U; 71045; 94640; 96372; 99284; J0696